=== PATIENT | male | born 1960 ===

== ENCOUNTER 2018-05-02 05:53 | Day surgery (SDC) | payer BC ==
[~2018-05-02] VITALS: Ht 157.5 cm; Wt 76.2 kg
[2018-05-02] VITALS (12 sets, daily range): BP systolic 108–132; BP diastolic 67–83
[~2018-05-02 05:53] MED LIST: AMARYL1 MG ORAL; LIPITOR80 MG ORAL; METFORMIN HCL1000 M1 ORAL; Phenylephrine 2.5% Op 2ml Soln ONE
[2018-05-02] MEDS ORDERED: Flurbiprofen 0.03% Opth Sol 2.5ml RIGHT EYE SCH (06:00)
[2018-05-02] MEDS ORDERED: Avastin 10mg Inj IVITRE ONE (06:00)
[2018-05-02] MEDS: Cyclopentolate 1% Opth Sol 2ml RIGHT EYE SCH ×3 (06:24→06:49)
[2018-05-02] MEDS: Phenylephrine 2.5% Op 2ml Soln RIGHT EYE SCH ×3 (06:24→06:49)
[2018-05-02] MEDS ORDERED: fentaNYL 100 mcg/2 mL IV ONE (06:56)
[2018-05-02] MEDS ORDERED: Midazolam 2mg/2ml Inj ONE (06:56)
[2018-05-02] MEDS ORDERED: Propofol 200mg/20ml IV ONE (06:57)
[2018-05-02] MEDS ORDERED: EPINEPHrine 1mg/1ml Amp ONE (06:58)
[2018-05-02] MEDS ORDERED: Goniosol 2.5% Opth Soln - 15ml ONE (06:59)
[2018-05-02] MEDS ORDERED: Lidocaine 2% MPF 5ml Vial INJ ONE (06:59)
[2018-05-02] MEDS ORDERED: Kenalog-40 1ml Vial ONE (06:59)
[2018-05-02] MEDS ORDERED: Neosporin Oph Soln 5ml Btl ONE (06:59)
[2018-05-02] MEDS ORDERED: Maxitrol Opth Oint 3.5gm ONE (06:59)
[2018-05-02] MEDS ORDERED: Sterile Water Irrig 1000ml IRRIG ONE (07:00)
[2018-05-02] MEDS ORDERED: Dexamethasone 4mg/ml vial ONE (07:00)
[2018-05-02] MEDS ORDERED: BSS 500ml btl ONE (07:00)
[2018-05-02] MEDS ORDERED: BSS 15ml BTL ONE (07:00)
[2018-05-02] MEDS ORDERED: LR 1000ml ONE (07:00)
[2018-05-02] MEDS ORDERED: NS Irrig 1000ml ONE (07:00)
[2018-05-02] MEDS ORDERED: Bupivacaine 0.75% 30ml vial INJ ONE (07:01)
[2018-05-02] MEDS ORDERED: Povidone-Iodine 5% opth solution ONE (07:02)
--- NOTE | 2018-05-02 07:12 | Pre-Procedure Note/Attestation ---
Pre-Procedure Note/Attestation Complete Prior to Procedure Planned Procedure: right Procedure Narrative: 23G PPV/EL/AFx/ABIGAIL right eye Indications for Procedure Pre-Operative Diagnosis: vitreous hemorrhage right eye Attestation I attest that I discussed the nature of the procedure; its benefits; risks and complications; and alternatives (and the risks and benefits of such alternatives ), prior to the procedure, with the patient (or the patient's legal financial service representative). I attest that, if there was a reasonable possibility of needing a blood transfusion, the patient (or the patient's legal financial service representative) was given the [facility] standardized written summary, pursuant to the Jesse Yuri Blood Safety Act ([place] Health and Safety Code # 1645, as amended). I attest that I re-evaluated the patient just prior to the surgery and that there has been no change in the patient's H&P, except as documented below: SOPHIA ALVAREZ M.D. May 02, 2018 07:12
[2018-05-02] MEDS ORDERED: LR 1000ml 1,000 ML IVLG SCH (07:53)
--- NOTE | 2018-05-02 07:53 | Anethesia Preoperative Eval ---
Anesthesia Pre-op PMH/ROS General Date of Evaluation: May 02, 2018 Time of Evaluation: 07:10 Anesthesiologist: Leland ASA Score: ASA 3 Mallampati Score Class I : Soft palate, uvula, fauces, pillars visible Class II: Soft palate, uvula, fauces visible Class III: Soft palate, base of uvula visible Class IV: Only hard plate visible Mallampati Classification: Class II Surgeon: Raymon Diagnosis: R eye vitreal hemorrhage Surgical Procedure: R eye PPV Anesthesia History: none Family History: no anesthesia problems Allergies: Coded Allergies: No Known Allergies (Verified , 10/11/11) Medications: see eMAR Past Medical History Cardiovascular: Reports: HTN - mild, other - PVD; Denies: CAD, PR, valve dz, arrhythmia Pulmonary: Denies: asthma, COPD, AMI, other Gastrointestinal/Genitourinary: Reports: GERD; Denies: CRI, ESRD, other Neurologic/Psychiatric: Denies: dementia, CVA, depression/anxiety, TIA, other Endocrine: Reports: DM - on pills, strong family Hx; Denies: hypothyroidism, steroids, other HEENT: Reports: cataract (L), cataract (R), glaucoma, other - Retiinopathy Musculoskeletal/Integumentary: Denies: OA, RA, DJD, DDD, edema, other Other: other - overweight PMH Narrative: as above PSxH Narrative: Bilateral eye Sx Anesthesia Pre-op Phys. Exam Physician Exam Last Vital Signs Date Time Temp Pulse Resp B/P (MAP) Pulse Ox O2 Delivery O2 Flow Rate FiO2 05/02/18 06:33 97.4 63 20 132/83 (99) 97 97.4 05/02/18 06:19 Room Air Constitutional: NAD Neurologic: CN 2-12 intact Cardiovascular: RRR, no M/R/G Respiratory: CTA Gastrointestinal: S/NT/ND Airway Exam Mallampati Score: Class II MO: full Neck: short ROM: limited Teeth: missing Dentures: no upper, no lower Anesthesia Pre-op A/P Labs see chart Accucheck 141 at admission Studies Pre-op Studies: EKG - SR Risk Assessment & Plan Assessment: ASA 3 Plan: MAC with retrobulbar block Status Change Before Surgery: No Pre-Antibiotics Drug: none Angelo Ha MD May 02, 2018 07:53
[2018-05-02] MEDS ORDERED: fentaNYL 100 mcg/2 mL IV PRN (08:00)
--- NOTE | 2018-05-02 08:06 | Brief Operative Note ---
Immediate Post Operative Note Operative Note Pre-op Diagnosis: vitreous hemorrhage right eye Procedure: 23G PPV/EL/AFx right eye Post-op Diagnosis: vitreous hemorrhage right eye Post-op Diagnosis: same as pre-op Findings: consistent w/pre-op dx studies Surgeon: Jaquan Ennis Anesthesia: local Specimen: none Complications: none Condition: stable Fluids: <500cc Estimated Blood Loss: none Drains: none Implant(s) used?: JAQUAN Torres M.D. May 02, 2018 08:06
--- NOTE | 2018-05-02 08:11 | Immediate Post-Op Evaluation ---
Immediate Post-Op Evalulation Immediate Post-Op Evalulation Procedure: R eye PPV, laser treatment Date of Evaluation: May 02, 2018 Time of Evaluation: 08:09 IV Fluids: 300 Blood Products: none Estimated Blood Loss: min Urinary Output: none Blood Pressure Systolic: 117 Blood Pressure Diastolic: 72 Pulse Rate: 61 Respiratory Rate: 20 O2 Sat by Pulse Oximetry: 99 Temperature (Fahrenheit): 97.6 Pain Score (1-10): 1 Nausea: No Vomiting: No Complications none Patient Status: awake, patent, none Hydration Status: adequate Angelo Ha MD May 02, 2018 08:11
[2018-05-02] MEDS ORDERED: Norco 5mg/325mg tab ORAL PRN ×2 (08:15→08:30)
--- NOTE | 2018-05-02 09:33 | 48 Hour Post Anesthesia Eval ---
Post Anesthesia Evaluation Procedure: R eye PPV, laser treatment Date of Evaluation: May 02, 2018 Time of Evaluation: 09:32 Blood Pressure Systolic: 121 0: 76 Pulse Rate: 64 Respiratory Rate: 20 Temperature (Fahrenheit): 97.6 O2 Sat by Pulse Oximetry: 98 Airway: patent Nausea: No Vomiting: No Pain Intensity: 1 Hydration Status: adequate Cardiopulmonary Status: stable Mental Status/LOC: patient returned to baseline Follow-up Care/Observations: n/a Post-Anesthesia Complications: none Follow-up care needed: ready to discharge Angelo Ha MD May 02, 2018 09:33
--- NOTE | 2018-05-02 13:00 | Operative Note - Dictated ---
DATE OF OPERATION: 05/02/2018 SURGEON: Jaquan Ennis M.D. PREOPERATIVE DIAGNOSIS: Vitreous hemorrhage, right eye. POSTOPERATIVE DIAGNOSIS: Vitreous hemorrhage, right eye. NAME OF OPERATION: A 23-gauge pars plana vitrectomy, endolaser, and air-fluid exchange, right eye. ANESTHESIA: Local. BLOOD LOSS: None. COMPLICATIONS: None. INDICATIONS: The patient is a 57-year-old male with blurred vision in his right eye. He presents with a nonclearing diabetic vitreous hemorrhage. The findings were discussed with the patient as well as the risks, benefits, and alternatives to the above-named procedure and the patient wishes to proceed with surgery. The patient understands that the risks include, but are not limited to, loss of vision and loss of the eye. Informed consent was obtained. DESCRIPTION OF THE PROCEDURE: On the day of the procedure, the right eye was noted to be the operative eye and marked. The patient received three sets of the standard preoperative eye drops in the holding area. The patient was then brought to the operating room with appropriate anesthesia monitors were placed. The right eye was again identified as the operative eye during time-out. The nonoperative eye was patched and shielded. The operative eye then received a retrobulbar block consisting of 1:1 mixture of 2% lidocaine without epinephrine and 0.75% bupivacaine for a total of 5 mL. Anesthesia and akinesia were noted to have been obtained. The operative eye was then prepped and draped in the usual sterile ophthalmic fashion. A lid speculum was placed in the operative eye. The 23-gauge cannulas were placed with infusion located inferotemporally. A standard three-port pars plana vitrectomy was then performed. A posterior vitreous detachment was induced with the vitreous cutter. Endolaser was used to supplement the existing panretinal photocoagulation. An air-fluid exchange was then performed. The 23-gauge cannulas were then removed. The wounds were checked for leakage and found to be watertight. The intraocular pressure was palpated and found to be within normal limits. The patient then received subconjunctival injections of Ancef and dexamethasone. The lid speculum and drapes were then removed. Maxitrol ointment and atropine eye drops were applied to the eye. The eye was patched and shielded. The patient tolerated the procedure well and was returned to the postoperative care area in good condition. Jaquan Magdalena Ennis DR: [id number] JOB#: [id number] CC:
== END 2018-05-02 09:35 | disposition home or self-care (01) ==
LOC: SUR 05:53
DX: H43.11 Vitreous hemorrhage, right eye (principal); E11.319 Type 2 diabetes mellitus with unspecified diabetic retinopathy without macular edema; I10 Essential (primary) hypertension; I73.9 Peripheral vascular disease, unspecified; K21.9 Gastro-esophageal reflux disease without esophagitis; E66.3 Overweight; G47.33 Obstructive sleep apnea (adult) (pediatric); Z79.84 Long term (current) use of oral hypoglycemic drugs
CPT/HCPCS: 67040; 82962; J0171; J0690; J1100; J2250; J2704; J3010; J3490; J7120; 94003; 94150